=== PATIENT | female | born 1985 | race Caucasian/White ===

== ENCOUNTER 2016-08-30 15:51 | Emergency (ER) | payer OTHER ==
--- NOTE | ~2016-08-30 | CT71 ---
[facility] A Service of [facility] RADIOLOGY TEXT RESULTS PATIENT: OXANA MELISSA LOCATION: SED : 89 UNIT #: [id number] AGE: [address]: Maki Johnson MD SEX: F ORDER DR: [id number] [address] [address] [id number] MR#: [id number] #: [id number] NAME: OXANA MELISSA. : 1985 SEX: F STUDY DATE/TIME: 08/30/2016 16:38 UNIT: SED ROOM: STUDY DESCRIPTION: CT Head Wo Contrast Attending Physician: Maki Johnson M.D. Ordering Physician: Maki Johnson M.D. Primary Care Physician: No Primary Care Physician MEDICAL IMAGING REPORT This report is preliminary unless electronic signature is present. EXAM CT head without IV contrast COMPARISON March 22, 2009. INDICATION A 31-year-old female with headache today. Elevated blood pressure today. Swollen eyes. TECHNIQUE This CT exam was performed with one or more of the following radiation dose reduction techniques: automatic exposure control, adjustment of mA and/or kV according to patient size, and iterative reconstruction. FINDINGS Evaluation of the orbits is mildly limited by motion. There is a focus of gas immediately anterior to the globe on the right and on the left. These are seen previously in different locations just anterior to the globes, and this is a common finding most likely representing air from the surrounding environment. However, there does appear to be some irregularity of the skin surface of the right eyelid, not well evaluated on CT. No radiopaque foreign body is seen. No evidence of orbital cellulitis. The globes appear symmetric and intact. Evaluation of the bones is also limited by motion. Mastoid air cells, middle ears visualized paranasal sinuses appear well aerated. Normal cerebral volume. No abnormal extraaxial fluid collection or other mass effect. No evidence of acute intracranial hemorrhage. Evaluation for acute ischemia is limited by motion. No convincing evidence of acute ischemia seen on this exam. IMPRESSION [facility] A Service of [facility] RADIOLOGY TEXT RESULTS PATIENT: OXANA MELISSA [place] [facility] [place] [birth year] UNIT #: [id number] AGE: [address]: Alex,June P SEX: F ORDER DR: 1. Motion-limited exam. There is questionable irregularity at the skin surface of the right eyelid, possibly an artifact due to motion. Given the complaint of eye swelling, clinical correlation to exclude signs of preseptal cellulitis recommended. No evidence of postseptal inflammatory change. 2. No acute intracranial abnormality is seen. Dictated by... Robert Aguilera M.D. THIS IS AN ELECTRONICALLY VERIFIED REPORT Robert Aguilera M.D. at 08/31/2016 3:16 PM Lena TD: 08/30/2016 21:42 JOB #: [id number] MEDICAL IMAGING REPORT Page 1 of 1
[~2016-08-30 15:51] MED LIST: ALBUTEROL17 GM INH; ATIVAN PO; BACTRIM DS TABL1 TA1 PO; BACTRIM DS TABL1 TAB PO; FLEXERIL PO; IBUPROFEN PO; KEFLEX PO; KEFLEX500 MG PO; KETOPROFEN PO; LORTAB 5/500 TA1 TA1 PO; ORTHO TRI-7 DAYSX 3 PO; PROMETHAZINE-D240 ML PO; TESSALON200 MG PO; VIBRAMYCIN100 M1 DOB; VICODIN 5/500 T1 TAB PO; VICODIN PO; ZITHROMAX PO
[2016-08-30] MEDS ORDERED: ADDERALL5 MG PO (16:01)
[2016-08-30] MEDS ORDERED: WELLBUTRIN PO (16:01)
[2016-08-30] MEDS ORDERED: METOPROLOL SUCC25 MG PO (16:02)
== END 2016-08-30 18:03 | disposition home or self-care (01) ==
LOC: SED 15:51
DX: H10.33 Unspecified acute conjunctivitis, bilateral (principal); L03.213 Periorbital cellulitis; I10 Essential (primary) hypertension; F41.9 Anxiety disorder, unspecified; F17.210 Nicotine dependence, cigarettes, uncomplicated; Z88.0 Allergy status to penicillin; Z88.8 Allergy status to other drugs, medicaments and biological substances; Z79.899 Other long term (current) drug therapy
CPT/HCPCS: 70450; 99284